=== PATIENT | male | born 1995 | race Caucasian/White ===

== ENCOUNTER 2017-09-28 10:59 | Emergency (ER) | payer SELFPAY ==
[~2017-09-28] VITALS: Ht 193 cm; Wt 104.3 kg
--- NOTE | 2017-09-28 11:09 | ED GENERAL ADULT ---
History of Present Illness General Chief Complaint: ETOH/Drug Related Complaint Stated Complaint: DRANK PURELL Source: patient Exam Limitations: no limitations Vital Signs & Intake/Output Vital Signs & Intake/Output Vital Signs Date Time Temp Pulse Resp B/P B/P Pulse O2 O2 Flow FiO2 Mean Ox Delivery Rate 09/28 1525 97.8 120 18 134/82 96 Room Air Room Air 09/28 1134 121 18 136/80 95 Room Air Allergies Coded Allergies: No Known Allergies (09/28/17) Reconcile Medications Clonazepam (Klonopin) 1 MG TABLET 3 TAB PO DAILY HTN (Reported) Triage Nurses Notes Reviewed? yes Onset: Abrupt Duration: hour(s): Timing: recent history HPI: 09/28/17 The patient was seen on arrival. He is a 22-year-old male that presents to the emergency department after ingesting 11 (1 ounce ) bottles of Purell. The patient has a history of substance abuse and alcohol dependency. He was being taken by his sponsor to a drug rehabilitation program when he drank the Purell at a hotel. He denies suicidal ideation or other complaints. Past History Travel History Traveled to [place] past 21 day No Medical History Any Pertinent Medical History? see below for history Psychiatric: substance abuse Surgical History Surgical History: non-contributory Family History Hx Contributory? No Review of Systems Review of Systems Constitutional: Reports: no symptoms. EENTM: Reports: no symptoms. Respiratory: Reports: no symptoms. Cardiovascular: Reports: no symptoms. GI: Reports: no symptoms. Genitourinary: Reports: no symptoms. Musculoskeletal: Reports: no symptoms. Skin: Reports: no symptoms. Neurological/Psychological: Reports: no symptoms. Hematologic/Endocrine: Reports: no symptoms. Immunologic/Allergic: Reports: no symptoms. Physical Exam Physical Exam General Appearance: alert, awake, anxious, mild distress Head: atraumatic, normal appearance Eyes: Bilateral: normal appearance, PERRL, EOMI. Ears, Nose, Throat: normal pharynx, normal ENT inspection Neck: normal inspection, supple, full range of motion Respiratory: normal breath sounds, chest non-tender, no respiratory distress Cardiovascular: regular rate/rhythm Peripheral Pulses: 4+ radial (R), 4+ radial (L) Gastrointestinal: soft, non-tender Back: normal range of motion Extremities: normal inspection, normal range of motion Neurologic/Psych: no motor/sensory deficits, awake, alert, oriented x 3 Skin: intact, normal color, warm/dry Core Measures ACS in differential dx? No CVA/TIA Diagnosis: No Sepsis Present: No Sepsis Focused Exam Completed? No Progress Differential Diagnoses I considered the following diagnoses in my evaluation of the patient: [ Alcohol Intoxication, drug abuse, depression] Plan of Care: Orders Procedure Date/time Status Telemetry/Slate Worker 09/28 1121 Active URINE DRUG SCREEN FOR ER ONLY 09/28 112 Complete ACETOMINOPHEN 09/28 112 Complete SALICYLATE 09/28 112 Complete ETHANOL 09/28 112 Complete COMPREHENSIVE METABOLIC PANEL 09/28 112 Complete CBC WITHOUT DIFFERENTIAL 09/28 1121 Complete Laboratory Tests 09/28/17 1141: Urine Opiates Screen < 100.00, Methadone Screen < 40, Barbiturate Screen < 60, Ur Phencyclidine Scrn < 6.00, Amphetamines Screen < 100, U Benzodiazepines Scrn < 85, Urine Cocaine Screen < 50, Urine Cannabis Screen < 5.00 09/28/17 1126: Anion Gap 21 H, Estimated GFR > 60, BUN/Creatinine Ratio 17.1, Glucose 195 H, Calcium 10.2, Total Bilirubin 0.7, AST 61 H, ALT 30, Alkaline Phosphatase 95, Total Protein 7.9, Albumin 5.0, Globulin 2.9, Albumin/Globulin Ratio 1.7, CBC w Diff NO MAN DIFF REQ, RBC 5.02, MCV 89.0, MCH 30.8, MCHC 34.7, RDW 13.1, MPV 7.6 , Gran % 68.4, Lymphocytes % 23.9, Monocytes % 6.9, Eosinophils % 0.1, Basophils % 0.7, Absolute Granulocytes 3.9, Absolute Lymphocytes 1.4, Absolute Monocytes 0.4, Absolute Eosinophils 0, Absolute Basophils 0, Salicylates < 1.0, Acetaminophen < 10.0 L, Serum Alcohol 363.0 Initial ED EKG: none Departure Departure Disposition: STILL A PATIENT Condition: Stable Clinical Impression Primary Impression: Alcohol intoxication Departure Forms: Customer Survey General Discharge Information Comments 09/28/17 4:40 pm The patient's alcohol level was 360. He was observed in the emergency department. Poison control was consulted and agreed with the plan. Now at 4:40 pm he is awake alert oriented 3 and non-ataxic. His sponsor is taking him to a drug rehabilitation program in [place]. Critical Care Note Critical Care Note Critical Care Time: 30-74 min
[2017-09-28] MEDS ORDERED: KLONOPIN1 M1 PO (11:21)
[2017-09-28 11:36] LABS: ABSOLUTE BASOPHIL COUNT 0 /CUMM (0.0-0.2); ABSOLUTE EOSINOPHIL COUNT 0 /CUMM (0.0-0.7); ABSOLUTE GRANULOCYTE CT 3.9 /CUMM (1.4-6.5); ABSOLUTE LYMPH COUNT 1.4 /CUMM (1.2-3.4); ABSOLUTE MONOCYTE COUNT 0.4 /CUMM (0.10-0.60); BASOPHIL % 0.7 % (0.0-2.0); EOSINOPHIL % 0.1 % (0-5); GRANULOCYTE % 68.4 % (42.2-75.2); HEMATOCRIT 44.7 % (42-52); MEAN CORPUSCULAR HGB 30.8 PG (27.0-31.0); MEAN CORPUSCULAR HGB CONC 34.7 G/DL (33.0-37.0); MEAN PLATELET VOLUME 7.6 FL (7.4-10.4); PLATELET COUNT 402 /CUMM (130-400); RBC DISTRIBUTION WIDTH 13.1 % (11.5-14.5); RED BLOOD CELL CT 5.02 /CUMM (4.70-6.10); WHITE BLOOD CELL COUNT 5.8 /CUMM (4.8-10.8)
== END 2017-09-28 17:01 ==
LOC: ERH 10:59
PROVIDERS: Emergency Medicine
DX: F10.129 Alcohol abuse with intoxication, unspecified (principal)
CPT/HCPCS: 80307; G0480